=== PATIENT | female | born 1995 | race Caucasian/White ===

== ENCOUNTER 2022-06-08 01:24 | Inpatient (IN) | payer SELFPAY ==
[~2022-06-08] VITALS: Ht 167.6 cm; Wt 106.1 kg
[2022-06-08] MEDS ORDERED: BUTORPHANOL TARTRATE 2 MG/ML VIAL IV PRN (02:30)
[2022-06-08] MEDS ORDERED: METHYLERGONOVINE MALEATE 0.2 MG/ML IM PRN (02:30)
[2022-06-08] MEDS ORDERED: NALOXONE HCL 0.4 MG/ML 1ML VIAL IM PRN (02:30)
[2022-06-08] MEDS ORDERED: RHO(D) IMMUNE GLOBULIN 300 MCG/SYR IM NR (02:30)
[2022-06-08] MEDS ORDERED: LACTATED RINGERS 1,000 ML IV ONE (02:30)
[2022-06-08] MEDS ORDERED: MAGNESIUM 4 G PREMIX 100 ML IV ONE (02:30)
[2022-06-08] MEDS ORDERED: LIDOCAINE HCL 1% 20ML VIAL (Pyxis) INJ INFIL SCH (02:30)
[2022-06-08] MEDS ORDERED: BLOOD SUGAR DIAGNOSTIC STRIP TEST ONE (02:30)
[2022-06-08] MEDS ORDERED: DIPHENHYDRAMINE 50MG/ML VIAL IM PRN (02:30)
[2022-06-08] MEDS ORDERED: NALOXONE HCL 0.4 MG/ML 1ML VIAL IV PRN (02:30)
[2022-06-08] MEDS ORDERED: PENICILLIN G POTASSIUM 5 MMU in DEXT 5% WATER 100 ML IV NR (02:30)
[2022-06-08] MEDS: LABETALOL HCL 100MG TABLET PO SCH ×3 (03:22→18:39)
[2022-06-08] MEDS: MAGNESIUM 20 G PREMIX (L & D) 500 ML IV SCH ×2 (03:46→13:53)
[2022-06-08] MEDS: LACTATED RINGERS 1,000 ML IV SCH ×3 (03:49→22:30)
[2022-06-08 03:54] LABS: BASOPHILS % 0.2 % (0.0-2.0); EOSINOPHILS % 1.2 % (0.0-5.0); HEMATOCRIT. 36.6 % (36.0-48.0); HEMOGLOBIN. 12.4 g/dL (12.0-16.0); LYMPHOCYTES % 21.5 % (20.0-50.0); MEAN CORPUSCULAR HEMOGLOBIN 32.8 pg (28.0-32.0); MEAN CORPUSCULAR VOLUME 96.8 fL (81.0-99.0); MONOCYTES % 7.8 % (2.0-8.0); NEUTROPHILS % 69.3 % (40.0-76.0); PLATELET 103 x1000/uL (130-400); RED BLOOD CELL COUNT 3.78 mill/uL (4.2-5.4); RED CELL DISTRIBUTION WIDTH 13.2 % (11.6-14.6)
[2022-06-08] MEDS ORDERED: MISOPROSTOL 100MCG TABLET VG SCH (04:00)
[2022-06-08 04:08] LABS: D-DIMER 1.5 mg/L FEU (<0.50); INR 0.9; PARTIAL THROMBOPLASTIN TIME 27.5 sec (23.4-31.0); PROTHROMBIN TIME 9.8 sec (9.6-11.0)
[2022-06-08 04:14] LABS: *AMPHETAMINES SCREEN URINE NEGATIVE (NEGATIVE); *BARBITURATES SCREEN URINE NEGATIVE (NEGATIVE); *BENZODIAZEPINES SCREEN URINE NEGATIVE (NEGATIVE); *COCAINE SCREEN URINE NEGATIVE (NEGATIVE); CANNABINOID URINE SCREEN NEGATIVE (NEGATIVE); METHADONE URINE SCREEN NEGATIVE (NEGATIVE); OPIATES URINE SCREEN NEGATIVE (NEGATIVE); PHENCYCLIDINE URINE SCREEN NEGATIVE (NEGATIVE)
[2022-06-08 04:35] LABS: CHLORIDE 107 mEq/L (98-107)
[2022-06-08 05:35] LABS: CLARITY URINE CLEAR (CLEAR); COLOR URINE STRAW (YELLOW); KETONES URINE NEGATIVE (NEGATIVE); LEUKOCYTE ESTERASE URINE NEGATIVE (NEGATIVE); NITRITE URINE NEGATIVE (NEGATIVE); OCCULT BLOOD URINE NEGATIVE (NEGATIVE); PH URINE 6.5 (4.5-8.0); PROTEIN URINE NEGATIVE (NEGATIVE); SPECIFIC GRAVITY URINE 1.011 (1.005-1.030); UROBILINOGEN URINE 0.2 E.U./dL (0.2-1.0)
[2022-06-08 06:24] LABS: HEPATITIS B SURFACE ANTIGEN NEGATIVE
[2022-06-08] MEDS ORDERED: PENICILLIN G POTASSIUM 2.5 MMU in DEXTROSE 5% WATER 50 ML IV SCH (07:00)
[2022-06-08] MEDS ORDERED: ROPIVACAINE HCL/PF EPIDURAL 200 ML EPI SCH (08:00)
[2022-06-08] MEDS ORDERED: OXYTOCIN 30 UNITS/500ML NS PMX 500 ML IV SCH (08:45)
[2022-06-08] MEDS ORDERED: INFLUENZA VACCINE 05/PF 0.5 ML SYRINGE IM ONE (09:00)
[2022-06-08] MEDS: OXYTOCIN 30 UNITS/500ML NS PMX 500 ML IV SCH (09:02)
[2022-06-08] MEDS ORDERED: ACETAMINOPHEN 325MG TABLET PO PRN (20:00)
[2022-06-08] MEDS ORDERED: ROPIVACAINE HCL/PF EPIDURAL 200 ML EPI ONE (22:35)
[2022-06-08] MEDS ORDERED: FENTANYL CITRATE/PF 50MCG/ML 2ML VIAL ONE (22:35)
[2022-06-09] MEDS: MAGNESIUM 20 G PREMIX (L & D) 500 ML IV SCH (01:02)
[2022-06-09] MEDS: LACTATED RINGERS 1,000 ML IV SCH (02:14)
[2022-06-09] MEDS ORDERED: FENTANYL CITRATE/PF 50MCG/ML 2ML VIAL ONE (03:16)
[2022-06-09] MEDS: OXYTOCIN 30 UNITS/500ML NS PMX 500 ML IV SCH (08:50)
[2022-06-09] MEDS: LABETALOL HCL 100MG TABLET PO SCH ×3 (08:56→23:03)
[2022-06-09] MEDS ORDERED: HEMORRHOIDAL SUPP PR PRN (09:30)
[2022-06-09] MEDS ORDERED: RHO(D) IMMUNE GLOBULIN 300 MCG/SYR IM PRN (09:30)
[2022-06-09] MEDS ORDERED: BENZOCAINE/LANOLIN/ALOE VERA SPRAY TOP PRN (09:30)
[2022-06-09] MEDS ORDERED: BISACODYL 10MG SUPP PR PRN (09:30)
[2022-06-09] MEDS ORDERED: DIPHENHYDRAMINE 25MG CAPSULE PO PRN (09:30)
[2022-06-09] MEDS ORDERED: OXYTOCIN 30 UNITS/500ML NS PMX 500 ML IV SCH (09:30)
[2022-06-09] MEDS ORDERED: IBUPROFEN 400MG TABLET PO PRN (09:30)
[2022-06-09] MEDS ORDERED: GLYCERIN/WITCH HAZEL LEAF MEDICATED PAD TOP PRN (09:30)
[2022-06-09] MEDS ORDERED: ACETAMINOPHEN WITH CODEINE 300/30MG TABLET PO PRN (09:30)
[2022-06-09] MEDS: IBUPROFEN 800MG TABLET PO PRN ×2 (09:39→20:15)
[2022-06-09] MEDS: MAGNESIUM/ALUMINUM HYDROXIDE/SIMETHICONE 30ML UDC PO SCH ×2 (12:30→20:15)
[2022-06-09] MEDS: LANOLIN OINT 7GM TUBE TOP PRN (15:26)
[2022-06-09 15:27] VITALS: BP 148/92
[2022-06-09] MEDS: SIMETHICONE 80MG TABLET CHEW PO SCH ×3 (15:27→20:15)
[2022-06-09 16:49] VITALS: BP 149/98
[2022-06-09 20:00] VITALS: BP 138/87
[2022-06-09] MEDS: DOCUSATE SODIUM 100MG CAPSULE PO SCH (20:15)
[2022-06-09] MEDS ORDERED: NALOXONE HCL 0.4MG/ML VIAL IV PRN (22:45)
[2022-06-10] VITALS (7 sets, daily range): BP systolic 106–164; BP diastolic 56–100
[2022-06-10 08:00] LABS: BASOPHILS % 0.2 % (0.0-2.0); EOSINOPHILS % 0.9 % (0.0-5.0); HEMATOCRIT. 28.4 % (36.0-48.0); HEMOGLOBIN. 9.7 g/dL (12.0-16.0); LYMPHOCYTES % 16.1 % (20.0-50.0); MEAN CORPUSCULAR HEMOGLOBIN 33.2 pg (28.0-32.0); MEAN CORPUSCULAR VOLUME 97.4 fL (81.0-99.0); MEAN PLATELET VOLUME 12.1 fl (7.4-10.4); MONOCYTES % 7.7 % (2.0-8.0); NEUTROPHILS % 75.1 % (40.0-76.0); PLATELET 105 x1000/uL (130-400); RED BLOOD CELL COUNT 2.91 mill/uL (4.2-5.4); RED CELL DISTRIBUTION WIDTH 13.4 % (11.6-14.6)
[2022-06-10] MEDS: FERROUS SULFATE 325MG TABLET PO SCH ×2 (08:19→16:27)
[2022-06-10] MEDS: LABETALOL HCL 100MG TABLET PO SCH ×3 (08:19→20:27)
[2022-06-10] MEDS: SIMETHICONE 80MG TABLET CHEW PO SCH ×3 (08:20→20:26)
[2022-06-10] MEDS: PRENATAL VIT/FE FUMARATE/FA TABLET PO SCH (08:20)
[2022-06-10] MEDS: IBUPROFEN 800MG TABLET PO PRN ×2 (08:20→16:26)
[2022-06-10] MEDS: MAGNESIUM/ALUMINUM HYDROXIDE/SIMETHICONE 30ML UDC PO SCH ×3 (08:20→20:26)
[2022-06-10] MEDS ORDERED: CAFFEINE 200MG TABLET PO PRN (16:45)
[2022-06-10] MEDS: DOCUSATE SODIUM 100MG CAPSULE PO SCH (20:26)
[2022-06-11] VITALS: BP 150/90
[2022-06-11 02:46] VITALS: BP 100/54
[2022-06-11] MEDS: LABETALOL HCL 100MG TABLET PO SCH ×2 (03:00→09:17)
[2022-06-11] MEDS: IBUPROFEN 800MG TABLET PO PRN (05:03)
[2022-06-11 08:00] VITALS: BP 134/82
[2022-06-11] MEDS: LANOLIN OINT 7GM TUBE TOP PRN (09:17)
[2022-06-11] MEDS: PRENATAL VIT/FE FUMARATE/FA TABLET PO SCH (09:17)
== END 2022-06-11 09:55 | disposition home or self-care (01) | DRG 560 ==
LOC: 8 EST LDRP 01:24 → OBSVTOIN 01:24 → 8EST 06-09 10:15
PROVIDERS: ADMIT Obstetrics & Gynecology; ATTEND Obstetrics & Gynecology
PROC: 10E0XZZ Delivery of Products of Conception, External Approach (ICD-10-PCS; principal; 2022-06-09)
PROC: 3E0R3BZ Introduction of Anesthetic Agent into Spinal Canal, Percutaneous Approach (ICD-10-PCS; 2022-06-09)
PROC: 00HU33Z Insertion of Infusion Device into Spinal Canal, Percutaneous Approach (ICD-10-PCS; 2022-06-09)
PROC: 0KQM0ZZ Repair Perineum Muscle, Open Approach (ICD-10-PCS; 2022-06-09)
DX: O13.4 Gestational [pregnancy-induced] hypertension without significant proteinuria, complicating childbirth (principal); Z37.0 Single live birth; D69.6 Thrombocytopenia, unspecified; O14.94 Unspecified pre-eclampsia, complicating childbirth; O99.12 Other diseases of the blood and blood-forming organs and certain disorders involving the immune mechanism complicating childbirth; D62 Acute posthemorrhagic anemia; Z20.822 Contact with and (suspected) exposure to COVID-19; O99.02 Anemia complicating childbirth; O70.1 Second degree perineal laceration during delivery; D72.829 Elevated white blood cell count, unspecified; Z3A.38 38 weeks gestation of pregnancy
CPT/HCPCS: 36415; 76805; 76818; 80053; 80305; 81003; 82962; 83735; 84550; 85025; 85049; 85379; 85384; 86592; 86703; 86762; 86850; 86900; 87340; 87426; 90686; C1893; J2540; J2795; J3010; J3475; J7060; J7120; A4315; J2590